=== PATIENT | male | born 1985 | race Caucasian/White ===

== ENCOUNTER 2017-04-21 12:42 | Outpatient (CLI) | payer OTHER ==
--- NOTE | 2017-04-21 16:37 | DIAGNOSTIC IMAGING REPORT ---
PROCEDURE: US ECHOCARDIOGRAM INDICATION: Tachycardia TECHNIQUE: This is a technically adequate transthoracic echocardiogram. The patient is in sinus rhythm. COMPARISON: None FINDINGS: Left ventricle: Normal size. Normal wall thickness. Normal wall motion. Normal left ventricular ejection fraction, visually estimated 60-65%. Normal diastolic function. Right ventricle: Normal in size and function. Left atrium normal size. Right atrium: Normal size. Aortic valve: Normal in structure and function. Mitral valve: Normal in structure and function. Tricuspid valve: Normal in structure and function. Pulmonic valve: Normal in structure and function. Hemodynamics: Left atrial pressure is normal. Pulmonary artery pressure cannot be accurately estimated with the study although there are no other signs of pulmonary hypertension. Pericardium: No effusion. Aorta: Ascending aorta and aortic root are normal in size and the visualized portions. The ascending aorta measures 2.8 cm. IMPRESSION: Normal echocardiogram.
== END 2017-04-21 23:00 ==
LOC: US SRH 12:42
DX: R00.0 Tachycardia, unspecified (principal); M35.7 Hypermobility syndrome